=== PATIENT | female | born 1995 | race Hispanic/Latino ===

== ENCOUNTER 2019-05-17 23:51 | Emergency (ER) | payer OTHER ==
[~2019-05-17] VITALS: Ht 147.3 cm; Wt 55.5 kg
[2019-05-17 23:51] VITALS: BP 128/71
[2019-05-18 01:38] LABS: BASO % 0.6 % (0.0-1.0); EOS # 0.2 10^3/uL (0.0-0.50); EOS % 2.5 % (0.0-3.0); HEMATOCRIT 38.3 % (36.0-47.0); HEMOGLOBIN 13.6 g/dl (12.0-15.5); LYMPH # 2.1 10^3/uL (1.5-6.5); LYMPH % 31.5 % (24.0-44.0); MEAN CORPUSCULAR HEMOGLOBIN 31.5 pg (27.0-33.0); MEAN CORPUSCULAR HGB CONC 35.5 g/dl (32.0-36.5); MEAN CORPUSCULAR VOLUME 88.7 fl (80.0-96.0); MONO # 0.4 10^3/uL (0.0-0.8); MONO % 6.4 % (0.0-5.0); NEUTROPHILS # 3.9 10^3/uL (1.8-7.7); NEUTROPHILS % 58.3 % (36.0-66.0); PLATELET COUNT, AUTOMATED 251 10^3/uL (150-450); RED BLOOD COUNT 4.32 10^6/uL (4.00-5.40); WHITE BLOOD COUNT 6.8 10^3/uL (4.0-10.0)
[2019-05-18 02:27] LABS: BLOOD UREA NITROGEN 9 MG/DL (7-18); CALCIUM LEVEL 9.6 MG/DL (8.5-10.1); CARBON DIOXIDE LEVEL 28 MEQ/L (21-32); CHLORIDE LEVEL 105 MEQ/L (98-107); CREATININE FOR GFR 0.64 MG/DL (0.55-1.30); GLOMERULAR FILTRATION RATE > 60.0 (>60); GLUCOSE, FASTING 82 MG/DL (70-100); HCG, SERUM QUANTITATIVE 62102 MIU/ML; POTASSIUM SERUM 3.9 MEQ/L (3.5-5.1); SODIUM LEVEL 139 MEQ/L (136-145)
--- NOTE | 2019-05-18 02:45 | REPVR ---
EXAM: US First Trimester, Transabdominal EXAM DATE/TIME: 05/18/19 (2:03am) CLINICAL HISTORY: 24 year old female with vaginal bleeding. LMP or gestational age: 6 weeks 0 days. TECHNIQUE: Imaging protocol: Real-time transabdominal obstetrical ultrasound of the maternal pelvis and a first trimester , less than 14 weeks 0 days, with image documentation. COMPARISON: No relevant prior studies available FINDINGS: The LMP is reported to be: 04/02/19 An early live intrauterine gestation is identified, approx. 6 weeks 1 day gestational age, based on the crown-rump length (CRL = 4 mm). Based on the CRL measurement, the MARLEEN = 01/10/20. Close correlation with the menstrual history is noted. heart rate is recorded at 113 bpm. A yolk sac is visualized. The uterus is anteverted. The maternal ovaries are not clearly visualized. No free pelvic fluid is appreciated. No solid adnexal mass. IMPRESSION: A single live IUP is seen, at 6 weeks 0 days gestational age (based on the CRL). heartbeat is recorded. No adnexal pathology is seen. No free pelvic fluid is noted. Electronically signed by: Martha Berman On 05/18/2019 02:44:58 AM
== END 2019-05-18 03:06 | disposition home or self-care (01) ==
LOC: M ED 23:51
DX: O20.0 Threatened abortion (principal); Z3A.00 Weeks of gestation of pregnancy not specified

== ENCOUNTER 2019-12-25 14:15 | Inpatient (IN) | payer OTHER ==
[2019-12-25] VITALS (10 sets, daily range): BP systolic 100–129; BP diastolic 55–81
[~2019-12-25] VITALS: Ht 147.3 cm; Wt 61.0 kg
[2019-12-25] MEDS ORDERED: PRENTAB9 PO (15:21)
--- NOTE | 2019-12-25 16:20 | HPEPDOC ---
Obstetrical History & Physical General Date of Admission 12/25/2019 History of Present Illness Ms. Schuster is 24yo at 38+1wks by LMP of [id number], EDC [id number], who presents to LND triage with spouse and friend with c/o ROM, clear fluid, that occurred at 1330 today via a 'gush'; she states the fluid has continued to flow. She also states that she started experiencing mild contractions, now feels they are 5 minutes apart. She report good movement, denies VB. Her has been uncomplicated. Blood Type O Positive, GBS Negative, HIV negative, Glucose screen WNL. Chief Complaint: Rupture of membranes Information Provided By: Patient Care Care: Good Care Dating Final EDC: Jan 07, 2020 Final EDC for Daily Update: Jan 07, 2020 Final EDC by: LMP Antepartum Course Diagnos(e)s Uncomplicated Height (inches): 58 Pre- weight (lbs.): 118 Admission Weight (lbs.): 133 Change in Weight (lbs.): 15 Past Medical History Past Obstetrical History : Past Obstetrical History: [employer] History: Human papillomavirus(HPV) Past Medical History Medical History Denies Surgical History: Denies/None Family History Significant Family History: No pertinent family hx Social History Marital Status: Family situation: Spouse/partner home Psychosocial History: No pertinent psych hx * Smoker: non-smoker Alcohol: Denies Allergies Coded Allergies: No Known Allergies (Unverified , 05/17/19) Medications Scheduled No.137/Iron/Folic Acd ( Vitamin Tablet) 1 Each Tablet, 1 TAB PO DAILY Physical Examination Physical Examination GENERAL: Alert and oriented times three. ABDOMEN: Gravid FETUS: Is vertex by SVE, confirmed by TAUS. HEART RATE: Regular rate. LUNGS: Observed nonlabored breathing. EXTREMITIES: No edema. Vital Signs/I&O O: VSS, normotensive, afebrile EFW by [place]: 3100g FHR 135, moderate variability, +accels, no decels noted CTX: q 1.5-3 minutes, mild by palpation VE: 2/70/-3 SSE: Positive Pooling Pertinent Laboratoy Data Blood Type: O+ RBC Antibody Screen: Negative HIV: Negative Hepatitis B: Negative Rapid Plasma Reagin: Nonreactive Rubella: Immune Varicella: Immune Chlamydia/Gonorrhea: Negative Group B Streptococcus: Negative Quad Screen Test: Declined Anatomy Ultrasound Ultrasound Date: Aug 19, 2019 Placenta Location: Anterior Normal Anatomy: Yes Placenta Previa: No Assessment/Plan Assessment Ms. Schuster is a 24yo at 38+1wks, SROM at 1330 with clear fluid, early labor, Category I FHT. Uncomplicated , GBS Negative, O Positive, HIV negative. Plan Admit to LND and consent for delivery PIV start, admission labs drawn Saline lock Intermittent monitoring per SOP with Category I FHT PO hydration and regular diet while in early labor Expectant management at this time Consider augmentation with Pitocin PRN Consult with OB as indicated Anticipate JERAD ARGUETA CNM Dec 25, 2019 16:20
[2019-12-25 16:50] LABS: HEMATOCRIT 34.9 % (36.0-47.0); HEMOGLOBIN 12.1 g/dl (12.0-15.5); MEAN CORPUSCULAR HEMOGLOBIN 31.4 pg (27.0-33.0); MEAN CORPUSCULAR HGB CONC 34.7 g/dl (32.0-36.5); MEAN CORPUSCULAR VOLUME 90.6 fl (80.0-96.0); PLATELET COUNT, AUTOMATED 241 10^3/uL (150-450); RED BLOOD COUNT 3.85 10^6/uL (4.00-5.40); WHITE BLOOD COUNT 6.8 10^3/uL (4.0-10.0)
[2019-12-25] MEDS ORDERED: MOM 30ML SUSPENSION UDC PO PRN (17:45)
[2019-12-25] MEDS ORDERED: SIMETHICONE 80 MG CHEW TAB PO PRN (17:45)
[2019-12-25] MEDS ORDERED: PROMETHAZINE INJ 25 MG/ML VIAL (J2550) IV PRN (17:45)
[2019-12-25] MEDS ORDERED: CALCIUM CARBONATE 500 MG CHEW U/D PO PRN (17:45)
[2019-12-25] MEDS ORDERED: ACETAMINOPHEN 500 MG TAB PO PRN (17:45)
[2019-12-25] MEDS: BUTORPHANOL 2 MG/ML INJ (J0595) IV PRN (21:14)
[2019-12-26] MEDS: BUTORPHANOL 2 MG/ML INJ (J0595) IV PRN (01:55)
[2019-12-26] MEDS ORDERED: OXYTOCIN 30 UNITS IN 0.9% NaCl 500ML IV BAG (J2590) As Ordered ONE ×2 (02:17→04:34)
[2019-12-26] MEDS ORDERED: METHYLERGONOVINE MALEATE 0.2 MG/ML VIAL (J2210) As Ordered ONE (04:33)
[2019-12-26] MEDS ORDERED: OXYTOCIN DRIP 30 UNITS in IV 1 EA IV SCH ×4 (04:55)
[2019-12-26] MEDS ORDERED: LR 1,000 ML IV SCH (04:55)
--- NOTE | 2019-12-26 04:55 | DNPDOC ---
[facility] Delivery Note Delivery Note DATE OF DELIVERY: 12/26/2019 PREDELIVERY DIAGNOSIS: 38 1/7 weeks' gestation and labor. POST DELIVERY DIAGNOSIS: Delivered. PROCEDURE: Spontaneous vaginal delivery. ACCOUNT MANAGER: Dr. Machado ANESTHESIA: None. ESTIMATED BLOOD LOSS: 400 mL. FINDINGS: 5 pound 15 ounce 2700gm Girl , Score 8/[9, nuchal cord times 1. DELIVERY SUMMARY: Patient is a 24-year-old 1 now para 1 who was admitted to labor and delivery for active labor and SROM for 14hours. Patient SROM clear around 1340 on 12/25/2019. Baby girl head was delivered without difficulty over intact perineum in RACHEL position at 0400. The nose and mouth were bulb suctioned. x1 nuchal cord was noted. The shoulders were then delivered without difficulty. Cord was then clamped x2 and cut. was handed on mother's belly. Pitocin bolus was started. Perineum and vagina was inspected and found to have left labial laceration. This was repaired with 1% lidocaine 4cc with 2-0 chromic. The placenta was then delivered at 0423 spontaneously intact. Cord had a 3 vessel cord. This was then followed by heavy continuous bleeding from atony. EBL was 400mL. The vagina and perineum were reinspected and no further lacerations were found and hemostasis was good. Cytotec 1000mcg given VT x1 with some decrease in bleeding. Methergine x1 IM given and another dosing of pitocin with finally normallized bleeding. Fundus was firm but atony was from GILSON. Patient tolerated delivery well. Chely Machado MD Dec 26, 2019 04:55
[2019-12-26] MEDS ORDERED: MOM 30ML SUSPENSION UDC PO PRN (05:00)
[2019-12-26] MEDS ORDERED: METHYLERGONOVINE MALEATE 0.2 MG/ML VIAL (J2210) IM ONE (05:00)
[2019-12-26] MEDS ORDERED: ONDANSETRON 4MG/2ML VIAL (J2405) IV PRN (05:00)
[2019-12-26] MEDS ORDERED: IBUPROFEN 800 MG TAB PO PRN (05:00)
[2019-12-26] MEDS ORDERED: DIBUCAINE 1% OINTMENT 30GM TOP PRN (05:00)
[2019-12-26] MEDS ORDERED: RHOGAM 300 MCG (1500 IU) INJ (J2790) IM SCH (05:00)
[2019-12-26] MEDS ORDERED: miSOPROStol 200 MCG TAB (S0191) PR ONE (05:00)
[2019-12-26] MEDS ORDERED: MEASLES,MUMPS,RUBELLA VACCINE INJ (MMR-II) (90707) SC SCH (05:00)
[2019-12-26] MEDS ORDERED: LIDOCAINE 1% MDV 20ML VIAL INFIL ONE (05:00)
[2019-12-26] MEDS ORDERED: ACETAMINOPHEN 500 MG TAB PO PRN (05:00)
[2019-12-26 07:02] VITALS: BP 124/79
[2019-12-26 07:20] VITALS: BP 118/56
[2019-12-26] MEDS: METHYLERGONOVINE MALEATE 0.2 MG TAB PO SCH ×4 (09:04→21:27)
[2019-12-26] MEDS: PRENATAL VITAMINS CHEWABLE TABLET PO SCH (09:04)
[2019-12-26] MEDS: DOCUSATE SODIUM 100 MG CAP PO SCH ×2 (09:04→21:26)
[2019-12-26] MEDS: IBUPROFEN 600 MG TAB PO PRN ×2 (09:04→22:41)
[2019-12-26 18:10] VITALS: BP 115/58
[2019-12-27] MEDS: METHYLERGONOVINE MALEATE 0.2 MG TAB PO SCH ×2 (03:21→06:21)
[2019-12-27 05:52] VITALS: BP 103/55
[2019-12-27 07:00] LABS: HEMATOCRIT 27.4 % (36.0-47.0); MEAN CORPUSCULAR HEMOGLOBIN 31.3 pg (27.0-33.0); MEAN CORPUSCULAR HGB CONC 33.9 g/dl (32.0-36.5); MEAN CORPUSCULAR VOLUME 92.3 fl (80.0-96.0); PLATELET COUNT, AUTOMATED 128 10^3/uL (150-450); RED BLOOD COUNT 2.97 10^6/uL (4.00-5.40); WHITE BLOOD COUNT 7.9 10^3/uL (4.0-10.0)
[2019-12-27 07:04] LABS: HEMOGLOBIN 9.3 g/dl (12.0-15.5)
--- NOTE | 2019-12-27 08:46 | IPNPDOC ---
Progress Note Date of Service: Dec 27, 2019 Day#: 1 Progress Note PPD 1 SUBJECT: Joanne is a 24yo [id number] s/p uncomplicated early on 12/26/2019 after presenting with PROM at 38+ weeks, doing well day # 1. She has been ambulating, voiding spontaneously without issue and tolerating regular diet. Bottle feeding without issue, though she would like to breast feed exclusively if possible. Reports lochia is like a normal period. No f/c/n/v/CP/SOB. OBJECTIVE: VITAL SIGNS: Within normal limits, afebrile. Alert and oriented times three. Abdomen: Fundus firm at U-2. Soft, NTTP. Extremities: no pain with palpation of calves ASSESSMENT: Joanne is a 24yo [id number] s/p uncomplicated early on 12/26/2019 after presenting with PROM at 38+ weeks, doing well day # 1. Vitals within normal limits, afebrile, hemodynamically stable with no evidence of infection. PLAN: 1. Discharge to home today in the afternoon. direct sales consultant today to assist with . Ok to remove IV. 2. Tylenol and Motrin for pain. 3. Encourage breast feeding and ambulation. 4. undecided on contraception 5. Routine PP visit in 6 weeks in clinic. 6. Discussed return precautions at length. 7. no heavy lifting and vaginal rest [address] Dee Dee Hamlin MD VS, I&O, 24H, Fishbone Vital Signs/I&O Vital Signs Date Time Temp Pulse Resp B/P (MAP) Pulse Ox O2 Delivery O2 Flow Rate FiO2 12/27/19 05:52 97.6 69 17 103/55 (71) 99 Room Air Laboratory Data 24H LABS Laboratory Tests 2 12/27/19 06:41: Nucleated Red Blood Cells % (auto) 0.0 CBC/BMP Laboratory Tests 12/27/19 06:41 Dee Dee Hamlin MD Dec 27, 2019 08:46
[2019-12-27] MEDS ORDERED: IBUP80TA PO (08:47)
[2019-12-27] MEDS ORDERED: ACET-683 PO (08:47)
[2019-12-27] MEDS ORDERED: DOCU100C16 PO (08:47)
--- NOTE | 2019-12-27 08:50 | DS.PDOC ---
Discharge Summary General Date of Admission Dec 25, 2019 at 16:36 Date of Discharge Dec 27, 2019 Discharge Summary PROCEDURES PERFORMED DURING STAY: spontaneous vaginal delivery ADMITTING DIAGNOSES: 1. pre-labor rupture of membranes at 38+ weeks DISCHARGE DIAGNOSES: 1. pre-labor rupture of membranes at 38+ weeks, delivered COMPLICATIONS/CHIEF COMPLAINT: SROM. HISTORY OF PRESENT ILLNESS/HOSPITAL COURSE: Joanne is a 24yo [id number] s/p uncomplicated early on 12/26/2019 after presenting with PROM at 38+ weeks, doing well day # 1. She had a benign course and at time of discharge vitals are within normal limits, she is afebrile, hemodynamically stable with no evidence of infection. DISCHARGE MEDICATIONS: Please see below. ALLERGIES: Please see below. PHYSICAL EXAMINATION ON DISCHARGE: VITAL SIGNS: Within normal limits, afebrile. Alert and oriented times three. Abdomen: Fundus firm at U-2. Soft, NTTP. Extremities: no pain with palpation of calves LABORATORY DATA: Please see below. DIET: regular DISPOSITION: home DISCHARGE PLAN/INSTRUCTIONS: 1. Discharge to home today in the afternoon. provider relations consultant today to assist with . Ok to remove IV. 2. Tylenol and Motrin for pain. 3. Encourage breast feeding and ambulation. 4. undecided on contraception 5. Routine PP visit in 6 weeks in clinic. 6. Discussed return precautions at length. 7. no heavy lifting and vaginal rest 6 weeks DISCHARGE CONDITION: Stable TIME SPENT ON DISCHARGE: Greater than [address] Dee Dee Hamlin MD Vital Signs/I&Os Vital Signs Date Time Temp Pulse Resp B/P (MAP) Pulse Ox O2 Delivery O2 Flow Rate FiO2 12/27/19 05:52 97.6 69 17 103/55 (71) 99 Room Air Laboratory Data Labs 24H Laboratory Tests 2 12/27/19 06:41: Nucleated Red Blood Cells % (auto) 0.0 CBC/BMP Laboratory Tests 12/27/19 06:41 Discharge Medications Scheduled Docusate Sodium (Docusate Sodium) 100 Mg Capsule, 100 MG PO BID No.137/Iron/Folic Acd ( Vitamin Tablet) 1 Each Tablet, 1 TAB PO DAILY, (Reported) Scheduled PRN Acetaminophen (Acetaminophen) 500 Mg Tablet, 1,000 MG PO Q6HP PRN for PAIN / FEVER Ibuprofen (Ibuprofen) 800 Mg Tablet, 800 MG PO Q8HP PRN for PAIN LEVEL 6-10 Allergies Coded Allergies: No Known Allergies (Unverified , 05/17/19) Dee Dee Hamlin MD Dec 27, 2019 08:50
[2019-12-27] MEDS: DOCUSATE SODIUM 100 MG CAP PO SCH ×2 (09:30→20:32)
[2019-12-27] MEDS: PRENATAL VITAMINS CHEWABLE TABLET PO SCH (09:30)
[2019-12-27 17:50] VITALS: BP 109/60
[2019-12-28 06:00] VITALS: BP 114/56
[2019-12-28 06:13] VITALS: BP 114/56
[2019-12-28] MEDS: BUTORPHANOL 2 MG/ML INJ (J0595) IV PRN ×2 (07:33→07:36)
[2019-12-28] MEDS: DOCUSATE SODIUM 100 MG CAP PO SCH (07:40)
[2019-12-28] MEDS: PRENATAL VITAMINS CHEWABLE TABLET PO SCH (07:40)
--- NOTE | 2019-12-28 07:46 | IPNPDOC ---
Progress Note Date of Service: Dec 28, 2019 Day#: 2 Progress Note SUBJECT: Joanne is a 24yo [id number] s/p uncomplicated early on 12/26/2019 a fter presenting with PROM at 38+ weeks, day # 2. She has been ambulating, voiding spontaneously without issue and tolerating regular diet. Bottle feeding without issue, though she would like to breast feed exclusively if possible. Reports lochia is like a normal period. No f/c/n/v/CP/SOB. Undecided on contraceptive options at this time. OBJECTIVE: VITAL SIGNS: Within normal limits, afebrile. Alert and oriented times three. Abdomen: Fundus firm at U-2. Soft, NTTP. Extremities: no pain with palpation of calves A/P Joanne is a 24yo [id number] s/p uncomplicated early on 12/26/2019 after presenting with PROM at 38+ weeks, doing well day # 2. discussed and contraceptives. routine ppc. d/c today. VS, I&O, 24H, Fishbone Vital Signs/I&O Vital Signs Date Time Temp Pulse Resp B/P (MAP) Pulse Ox O2 Delivery O2 Flow Rate FiO2 12/28/19 06:00 98.4 75 16 114/56 (75) 100 Room Air JOO SALTER DO Dec 28, 2019 07:46
== END 2019-12-28 13:24 | disposition home or self-care (01) | DRG 807 ==
LOC: M LDO 14:15 → M LDI 16:36 → M OBS 12-26 06:47
PROVIDERS: ADMIT Registered Nurse Maternal Newborn; ATTEND Obstetrics & Gynecology
PROC: 10E0XZZ Delivery of Products of Conception, External Approach (ICD-10-PCS; principal; 2019-12-26)
PROC: 0HQ9XZZ Repair Perineum Skin, External Approach (ICD-10-PCS; 2019-12-26)
DX: O42.02 Full-term premature rupture of membranes, onset of labor within 24 hours of rupture (principal); Z37.0 Single live birth; Z3A.38 38 weeks gestation of pregnancy; O69.81X0 Labor and delivery complicated by cord around neck, without compression, not applicable or unspecified; O70.0 First degree perineal laceration during delivery

== ENCOUNTER 2020-09-28 17:21 | Emergency (ER) | payer OTHER ==
[~2020-09-28] VITALS: Ht 147.3 cm; Wt 63.7 kg
[~2020-09-28 17:21] MED LIST: ACET-683 PO; DOCU100C16 PO; IBUP80TA PO; PRENTAB9 PO
[2020-09-28] MEDS ORDERED: D 101000 PO (17:34)
[2020-09-28 18:24] LABS: BASO % 0.8 % (0.0-1.0); EOS # 0.2 10^3/uL (0.0-0.5); EOS % 4.4 % (0.0-3.0); HEMATOCRIT 38.9 % (36.0-47.0); LYMPH # 1.7 10^3/uL (1.5-5.0); LYMPH % 34.3 % (24.0-44.0); MEAN CORPUSCULAR HEMOGLOBIN 29.4 pg (27.0-33.0); MEAN CORPUSCULAR HGB CONC 33.4 g/dl (32.0-36.5); MONO # 0.3 10^3/uL (0.0-0.8); NEUTROPHILS # 2.7 10^3/uL (1.5-8.5); NEUTROPHILS % 53.7 % (36.0-66.0); PLATELET COUNT, AUTOMATED 267 10^3/uL (150-450); RED BLOOD COUNT 4.42 10^6/uL (4.00-5.40)
[2020-09-28 18:28] LABS: APPEARANCE, URINE MANUAL TURBID (CLEAR); COLOR, URINE MANUAL RED (YELLOW); PH,URINE MAN OBSCURED UNITS (5.0 - 7.0)
[2020-09-28 18:29] LABS: BILIRUBIN, URINE MANUAL OBSCURED (NEGATIVE); BLOOD URINE MANUAL POSITIVE (NEGATIVE); GLUCOSE, URINE (UA) MANUAL OBSCURED mg/dL (NEGATIVE); KETONE, URINE MANUAL OBSCURED mg/dL (NEGATIVE); LEUKOCYTE ESTERASE, URINE MAN OBSCURED (NEGATIVE); NITRITE, URINE MANUAL OBSCURED (NEGATIVE); PROTEIN, URINE MANUAL OBSCURED mg/dL (NEGATIVE); UROBILINOGEN, URINE MANUAL OBSCURED mg/dl (NORMAL)
[2020-09-28 18:33] LABS: BACTERIA, URINE NONE SEEN; HYALINE CAST, URINE NONE SEEN /lpf (0-1); RBC, URINE TNTC /hpf (0-3); SQUAMOUS EPITHELIAL CELL URINE NONE SEEN /hpf (SMALL AMT); WBC, URINE 0-1 /hpf (0-3)
[2020-09-28] MEDS ORDERED: NS 1,000 ML IV ONE (19:00)
[2020-09-28 19:03] LABS: BLOOD UREA NITROGEN 10 MG/DL (7-18); CALCIUM LEVEL 9.5 MG/DL (8.5-10.1); CARBON DIOXIDE LEVEL 28 MEQ/L (21-32); CHLORIDE LEVEL 108 MEQ/L (98-107); CREATININE FOR GFR 0.74 MG/DL (0.55-1.30); GLOMERULAR FILTRATION RATE > 60.0 (>60); GLUCOSE, FASTING 85 MG/DL (70-100); HCG, SERUM QUANTITATIVE 2696 MIU/ML; POTASSIUM SERUM 3.9 MEQ/L (3.5-5.1); SODIUM LEVEL 141 MEQ/L (136-145)
--- NOTE | 2020-09-28 20:37 | REPVR ---
PROCEDURE INFORMATION: Exam: US First Trimester, Transabdominal Exam date and time: 09/28/2020 8:17 PM Age: 25 years old Clinical indication: Lmp or gestational age (in weeks): 07/01/20; Antepartum complications; Bleeding; ; Additional info: 8wks preg with vag bleeding TECHNIQUE: Imaging protocol: Real-time transabdominal obstetrical ultrasound of the maternal pelvis and a first trimester , less than 14 weeks 0 days, with image documentation. COMPARISON: No relevant prior studies available. FINDINGS: Gestation: No evidence of a gestational sac. Embryonic/ heart rate: Not applicable Placenta: Unremarkable. No subchorionic bleed. Amniotic fluid: Amniotic fluid is normal for gestational age. BIOMETRY: Gestational age (AUA): 12 weeks 5 days based on LMP of 07/01/2020. MATERNAL: Uterus: Uterus measures 11.8 x 4.7 x 6.7 cm. Endometrial echo complex measures 1.5 cm containing a small amount of fluid/hemorrhagic products. Cervix: Unremarkable. Right adnexa: Right ovary measures 2.8 x 2.9 x 1.9 cm. Normal flow. Resistive index 0.6. Left adnexa: Left ovary measures 2.8 x 1.6 x 2.8 cm. Normal flow. Resistive index 0.5. Intraperitoneal space: No intraperitoneal free fluid. IMPRESSION: Small amount of fluid/hemorrhage products demonstrated in the endometrial cavity without evidence of a gestational sac. Considering history findings are consistent with early demise. Electronically signed by: Jenaro Ortiz On 09/28/2020 20:38:04 PM
[2020-09-28] MEDS ORDERED: KETOROLAC 30 MG/ML 1ML VIAL IV ONE (21:00)
[2020-09-28] MEDS ORDERED: ONDANSETRON 4MG/2ML VIAL IV ONE (21:00)
[2020-09-28] MEDS ORDERED: miSOPROStol 200 MCG TAB (S0191) PR ONE ×2 (21:00→23:45)
[2020-09-28 21:09] LABS: HEMATOCRIT 35.3 % (36.0-47.0); HEMOGLOBIN 11.6 g/dl (12.0-15.5); MEAN CORPUSCULAR HEMOGLOBIN 29.7 pg (27.0-33.0); MEAN CORPUSCULAR HGB CONC 32.9 g/dl (32.0-36.5); MEAN CORPUSCULAR VOLUME 90.3 fl (80.0-96.0); PLATELET COUNT, AUTOMATED 259 10^3/uL (150-450); RED BLOOD COUNT 3.91 10^6/uL (4.00-5.40); WHITE BLOOD COUNT 5.8 10^3/uL (4.0-10.0)
--- NOTE | 2020-09-28 23:42 | CR.PDOC ---
General Date of Consultation: Sep 28, 2020 Consultation REASON FOR CONSULTATION/CHIEF COMPLAINT: Vaginal bleeding in setting of missed HISTORY OF PRESENT ILLNESS: 25 yo 6H0001 @ 8 Wks BY US obtained this morning reports that they did not see a heart beat and she started spotting this morning. the bleeding got heavier and she reported to the ED. I was consulted for evaluation due to continued heavy bleeding in the ED. patient on my encounter denies any lightheadedness, shortness of breath , nasuea or vomiting. she wa given 800mcg cytotec 2hrs before my encounter and had a temp of 101.9 20 min after she received the cytotec. this was a wanted and her other baby is 9 months liborio. patient reports that she is hungry and would like to go home. she otherwise has no other concerns. ALLERGIES: Denies HOME MEDICATIONS: PNV, VIT D PAST MEDICAL HISTORY: 1. Denies PAST SURGICAL HISTORY: WTE, ADENOIDECTOMY A CHILD FAMILY HISTORY: NON CONTRIBUTORY SOCIAL HISTORY: Marital status Children: 1 REVIEW OF SYSTEMS :NEGATIVE PHYSICAL EXAMINATION: VITAL SIGNS: Please see below. GENERAL APPEARANCE:WELL APPEARING RESPIRATORY: Normal work of breathing CARDIOVASCULAR: regular rate ABDOMEN:non tender EXTREMITIES:grossly normal Pelvic: diffuse vaginal bleeding noted , large blood clot evacuated, cervix noted to be open with POC in the OS. A Rign forceps used to grasps to POC and remove. the forceps were then inserted inside the uterine cavity and additional placenta tissue removed. gentle currete used to removed all the blood clots from the uterine. patient tolerated proceure well ( she had received IV Toradol and zofan). an bedside US done at this time showed an empty uterus. vaginal bleedig at the end noted to me minimal like a period - which is expected. EBL 300ml. LABORATORY DATA: Please see below. ASSESSMENT/PLAN: 25 yo [id number] @ 8 Wks BY US with MAB passed in the ED. she received 800mcg of cytotec and expectided the evacuation with ring forceps as above. patient is hemodynamically stable, RH Pos. she is copying well. pain is well controlled. 1. give an additional dose of cytotec to take 4-8hrs after the first one for bleeding. 2. Discharge home with motrin and tylenol as well as zofran 3. F/U in our clinic monday or monday. she will clinic tomorrow to make appointment. patient expressed understanding. . Vital Signs/I&O Vital Signs Date Time Temp Pulse Resp B/P (MAP) Pulse Ox O2 Delivery O2 Flow Rate FiO2 09/28/20 21:42 101.9 102 17 122/61 (81) 98 Room Air Laboratory Data Labs 24H Laboratory Tests 2 09/28/20 17:31: Immature Granulocyte % (Auto) 0.8, Neutrophils (%) (Auto) 53.7, Lymphocytes (%) (Auto) 34.3, Monocytes (%) (Auto) 6.0H, Eosinophils (%) (Auto) 4.4H, Basophils (%) (Auto) 0.8, Neutrophils # (Auto) 2.7, Lymphocytes # (Auto) 1.7, Monocytes # (Auto) 0.3, Eosinophils # (Auto) 0.2, Basophils # (Auto) 0.0, Nucleated Red Blood Cells % (auto) 0.0, Anion Gap 5L, Glomerular Filtration Rate > 60.0, Calcium Level 9.5, Human Chorionic Gonadotropin, Quant [id number] 09/28/20 17:50: Bedside Urine Color (LAB) REDH, Bedside Urine Appearance (LAB) TURBIDH, Bedside Urine pH (LAB) OBSCUREDH, Bedside Urine Specific [place] (LAB , Bedside Urine Protein (LAB) OBSCUREDH, Bedside Urine Glucose (UA) OBSCUREDH, Bedside Urine Ketones (LAB) OBSCUREDH, Bedside Urine Blood POSITIVEH, Bedside Urine Nitrite (LAB) OBSCUREDH, Bedside Urine Bilirubin (LAB) OBSCUREDH, Bedside Urine Urobilinogen (LAB) OBSCUREDH, Bedside Urine Leukocyte Esterase (L OBSCUREDH, Urine Sediment Examination PERFORMED, Urine RBC TNTCH, Urine WBC 0-1, Urine Squamous Epithelial Cells NONE SEEN, Urine Bacteria NONE SEEN, Urine Hyaline Casts NONE SEEN 09/28/20 20:58: Nucleated Red Blood Cells % (auto) 0.0 CBC/BMP Laboratory Tests 09/28/20 17:31 09/28/20 20:58 Microbiology Microbiology 09/28/20 Urine Culture, Received Pending Allergies Coded Allergies: No Known Allergies (Unverified , 05/17/19) Home Medications Scheduled Cholecalciferol (Vitamin D3) (Vitamin D3) 25 Mcg Capsule, 25 MCG PO DAILY, (Reported) No.137/Iron/Folic Acd ( Vitamin Tablet) 1 Each Tablet, 1 TAB PO DAILY, (Reported) Scheduled PRN Acetaminophen (Acetaminophen) 500 Mg Tablet, 1,000 MG PO Q6HP PRN for PAIN / FEVER for 7 Days HARRY AVILES MD Sep 28, 2020 23:42
[2020-09-29 00:21] VITALS: BP 104/62
== END 2020-09-29 00:23 | disposition home or self-care (01) ==
LOC: M ED 17:21
DX: O03.9 Complete or unspecified spontaneous abortion without complication (principal); Z79.899 Other long term (current) drug therapy
CPT/HCPCS: 76801; 80048; 81000; 84702; 85025; 85027; 86850; 86900; 86901; 87086; 93976; 96361; 96374; 96375; 99284; J1885; J2405